=== PATIENT | female | born 1970 | race Caucasian/White ===

== ENCOUNTER 2019-08-02 08:07 | Day surgery (SDC) | payer BC, OTHER ==
[2019-07-20 09:18] LABS: URINE BILIRUBIN NEGATIVE (Negative); URINE BLOOD NEGATIVE (Negative); URINE CLARITY CLEAR; URINE COLOR YELLOW; URINE GLUCOSE-RANDOM* NEGATIVE (Negative); URINE KETONES NEGATIVE (Negative); URINE LEUKOCYTES-REFLEX NEGATIVE (Negative); URINE NITRITE-REFLEX NEGATIVE (Negative); URINE PROTEIN (DIPSTICK) NEGATIVE (Negative); URINE UROBILINOGEN 0.2 E.U./dl (0.2-1.0)
[2019-07-20 09:19] LABS: HEMATOCRIT 43.1 % (37.0-47.0); HEMOGLOBIN 14.4 gm/dL (12.0-15.0); MCH 30.2 pg (26.0-34.0); MCHC 33.3 g/dL (28.0-37.0); MCV 90.5 fL (80.0-100.0); RBC 4.76 mil/uL (4.20-5.00); RDW 14.1 % (10.5-14.5); WBC 8.7 thou/uL (4.0-11.0)
[2019-07-20 09:28] LABS: ALBUMIN 3.8 g/dL (3.4-5.0); CALCIUM 9.6 mg/dL (8.5-10.1); CREATININE 0.8 mg/dL (0.6-1.0); POTASSIUM 4.6 mmol/L (3.5-5.1)
[2019-07-20 09:31] LABS: PROTIME 10.2 Seconds (9.3-11.4)
[~2019-08-02] VITALS: Ht 157.5 cm; Wt 81.6 kg
[2019-08-02] VITALS (7 sets, daily range): BP systolic 120–136; BP diastolic 68–80
[~2019-08-02 08:07] MED LIST: CARAFATE1 GM PO; EFFEXOR XR37.5 MG PO; MOBIC15 MG PO; OMEPRAZOLE40 MG PO; RANITIDINE HCL300 M1 PO; TRAMADOL 50 MG50 MG PO
--- NOTE | 2019-08-02 16:13 | NUR ---
ASSESSMENT-PT LIVES AT HOME WITH HER SIGNIFICANT OTHER. PT HAD BEEN USING A CANE AT HOME PRIOR TO ADMISSION. PT DOES HER OWN ADLS. HER CHILDREN OR S.O. CAN HELP WITH THE LAUNDRY THAT IS LOCATED IN THE BASEMENT. PT PLANS TO GO HOME TODAY AND NEEDS A ROLLER WALKER FOR HOME. OFFERED OPTIONS AND SHE CHOSE [employer]. S/W ATIF AND SHE ISSUED PT A ROLLER WALKER FOR HOME TODAY. PT VOICES ON OTHER CONCERNS RELATED TO DC.
--- NOTE | 2019-08-02 16:19 | NUR ---
Pt came to unit from [facility] approx 1245. A&O x4. Dressing clean and intact. Polar pack in place. IVF infusing. Pain controlled with prn pain meds. Physical therapy worked with patient. Pt will get roller walker for home. Will discharge to home this pm.
--- NOTE | 2019-08-15 09:43 | O ---
[facility] [place] [address] OPERATIVE REPORT Name: RYAN JEFFREY Room #: DEP [facility]..#: [id number] Admission: 08/02/19 Attend Phys: Sravan Ramsey MD Discharge: 08/02/19 Date of : 70 Report #: [id number] THIS REPORT FOR: //name// CC: Alexis Ramsey DATE OF SERVICE: 08/02/2019 PREOPERATIVE DIAGNOSIS: Left knee osteoarthritis. POSTOPERATIVE DIAGNOSIS: Left knee osteoarthritis. PROCEDURE: Left total knee arthroplasty using Navio robotic assistance. SURGEON: Sravan Ramsey MD INTEGRITY MANAGER: Huma Stephenson PA-C. ANESTHESIA: General with an adductor canal block. IMPLANTS: [employer] Nephew size 3 Journey II BCS Oxinium femur, a size 2 tibia, size 9 polyethylene and a size 29 patella. TOURNIQUET TIME: 61 minutes. ESTIMATED BLOOD LOSS: 25 mL. COMPLICATIONS: None. SPECIMENS: None. CONDITION UPON LEAVING THE OPERATING ROOM: Stable. INDICATIONS FOR PROCEDURE: The patient is a 49-year-old female with severe left knee osteoarthritis. She failed conservative measures for this and after discussion with her, she elected for left total knee arthroplasty. DESCRIPTION OF PROCEDURE: Risks, benefits, alternatives, complications were discussed in detail with the patient including but not limited to risk of anesthesia, risk of damage to nerves, arteries, blood vessels, risk for infection, bleeding, risk for continued knee pain, need for reoperation. Informed consent was obtained from the patient. Left knee was appropriately marked in the preoperative holding area. IV Ancef was given for preoperative antibiotics. Adductor canal block was placed by Anesthesia. She was brought to the operating room and placed in supine position on operating room table. LMA anesthesia was induced without complication. Tourniquet was placed on the left [address] [address] OPERATIVE REPORT Name: ТАТЬЯНА CONTRERASRYAN Fred Room #: DEP [facility] Val#: [id number] Admission: 08/02/19 Attend Phys: Sravan Ramsey MD Discharge: 08/02/19 Date of : 70 Report #: [id number] thigh. Left lower extremity was prepped and draped in normal sterile fashion. Timeout was performed properly identifying the patient and procedure as well as the instrumentation. All in the operating room were in agreement. Left lower extremity was then exsanguinated. Tourniquet was inflated. Tourniquet time 61 minutes. Standard midline approach to the knee was made with 10 blade through the skin. Dissection was taken down sharply to the fascia and deep flaps were developed medially and laterally. Fresh 10 blade was used to make a medial parapatellar arthrotomy and the knee was inspected. There was severe medial compartment osteoarthritis with moderate patellofemoral and lateral compartment involvement. ACL and PCL were removed sharply. Reference pins were placed in the femur and the tibia. The knee was digitally mapped using the [employer] robotic system. We sized a size 3 femur and a size 2 tibia with a 10 spacer. After acceptance of the intraoperative plan, the distal femoral cut was made with a Navio bur. The distal femoral cutting block was then pinned in place and the chamfer cuts were made. Attention was turned to the tibia. The remainder of the menisci removed with Bovie cautery. The tibial resection guide was pinned in place using the Navio for placement and tibial resection was made. Medial osteophytes were removed from the tibia. The flexion and extension gaps were then checked and found to have good balance in flexion and extension both medially and laterally. Tibia was sized, found to be a size 2. A size 2 tibial trial was placed, pinned and punched. A size 4 TC3 femoral trial was placed and the box cut was made. This was then trialed with a size 9 polyethylene. Knee was taken through range of motion, found to be stable, found to have an mm to mm and a half laxity medially and laterally throughout range of motion. A 9 mm was resected off the posterior surface of the patella and a size 29 patellar trial was placed. Knee was taken through range of motion, found to be stable, found to have good patellar tracking. After this, trial components were removed. Bony ends were thoroughly irrigated with normal saline. A final size 2 tibia, size 3 Journey II BCS Oxinium femur and a size 29 patella were cemented in place using standard cementation techniques. While the cement cured, a periarticular injection consisting of morphine, ropivacaine, epinephrine and Toradol was placed around the knee joint capsule. After the cement cured, tourniquet was deflated. Hemostasis was obtained with Bovie cautery. Final size 9 polyethylene was placed. A gram of vancomycin was placed deep in the joint. Fascia was closed with 0 Vicryl, skin was closed with 2-0 Vicryl, 3-0 Monocryl. Dermabond and a MONTRELL dressing was applied. The patient tolerated this procedure well and went to the recovery room under the care of anesthesia postoperatively. <ELECTRONICALLY SIGNED> By: Sravan Ramsey MD 08/15/19 [id number] Sravan Ramsey MD /nt
== END 2019-08-02 18:47 | disposition home or self-care (01) ==
LOC: OR 08:07 → PRE 08:35 → 4S 12:50 → PRE 13:01 → EDSTATUS 14:27 → OR 14:30 → PRE 15:27 → ENTRNSPT 18:24 → OR 18:47
PROVIDERS: Orthopaedic Surgery
DX: M17.12 Unilateral primary osteoarthritis, left knee (principal); M25.562 Pain in left knee; J45.909 Unspecified asthma, uncomplicated; K21.9 Gastro-esophageal reflux disease without esophagitis; F32.9 Major depressive disorder, single episode, unspecified; F41.9 Anxiety disorder, unspecified; Z87.19 Personal history of other diseases of the digestive system; Z87.442 Personal history of urinary calculi; Z98.890 Other specified postprocedural states; Z87.891 Personal history of nicotine dependence; Z79.899 Other long term (current) drug therapy
CPT/HCPCS: 10102; 50010; 50101; 50415; 50954; 51130; 51225; 51320; 52001; 52282; 53000; 53078; 54118; 55372; 56527; 56528; 57095; 57103; 57110; 57127; 57180; 62110; 62900; 64042; 70005